=== PATIENT | female | born 1955 | race Caucasian/White ===

== ENCOUNTER 2017-05-13 17:33 | Observation (INO) | payer OTHER ==
--- NOTE | 2017-05-13 17:43 | EDPHY ---
H & P HPI/ROS: CHIEF COMPLAINT: Memory loss HISTORY OF PRESENT ILLNESS: The patient is a 61 y/o female arriving via EMS complaining of memory loss. She cannot remember what she did today, where she was this morning or what day it is today. She was last seen normal at 16:00, 2 hours ago. Her friend states she has had an upper respiratory illness all week, but the patient cannot remember this. Denies headache, fever, weakness, paresthesias or other pertinent symptoms. No recent trauma. REVIEW OF SYSTEMS: A ten point review of systems was performed and is negative with the exception of the items mentioned in the HPI. Past medical history: Diabetes insipidus Hypo change in vision, thyroidism Stage 3 Kidney disease Neuropathy Breast cancer, in remission, status post lumpectomy and chemotherapy Past surgical history: Lumpectomy Family history: Denies Social history: Friend at bedside Lives in [place] in [place] Denies marijuana use General Appearance: Alert. Vital signs reviewed. Blood Pressure: 181/96 Eyes: Pupils equal and round, no conjunctival injection, no discharge. Anicteric. ENT, Mouth: Mucous membranes are moist, no oropharyngeal erythema or edema. Neck: No lymphadenopathy, supple. Respiratory: Lungs are clear to auscultation; no wheezes, rales, or rhonchi. Cardiovascular: Regular rate and rhythm; no murmur, rub, or gallop. Gastrointestinal: Abdomen is soft and nontender, no masses or organomegaly, bowel sounds normal. Skin: Warm and dry, no rashes on exposed skin, normal color. Back: Nontender to palpation over the thoracolumbar spine. No CVAT. Extremities: No lower extremity edema, no calf tenderness or swelling. Neurological: At rest there appears to be flattening of the left nasolabial fold. Facial expressions are symmetric when following commands. Alert and oriented to person, place, year, and situation. Moving all four extremities easily and equally. Cranial nerves II through XII are examined and are intact (visual acuity not tested). Strength is 5 over 5 bilaterally with testing of all major motor groups. Sensation is intact to light touch over all 4 extremities. Deep tendon reflexes are 2+ in the biceps and knees bilaterally. Gait is normal. [id number] is performed accurately. NIHSS zero. Psychiatric: Normal affect. Constitutional: Initial Vital Signs Temperature (C) 37 C 11/18/17 18:00 Heart Rate 79 05/13/17 18:00 Respiratory Rate 16 05/13/17 18:00 Blood Pressure 176/105 H 05/13/17 18:00 O2 Sat (%) 98 05/13/17 18:00 O2 Delivery Mode Room Air Allergies/Adverse Reactions: meperidine HCl [From Demerol] Allergy (Verified 05/13/17 18:00) omeprazole [From Prilosec] Allergy (Verified 05/13/17 18:00) omeprazole magnesium [From Prilosec] Allergy (Verified 05/13/17 18:00) penicillin V potassium [From Pen-Vee K] Allergy (Verified 05/13/17 18:00) PRILO Allergy (Uncoded 05/31/13 10:42) Home Medications: Medication Instructions Recorded Docusate Sodium [Colace 100 MG (*)] 100 mg PO BID 05/13/17 Estradiol [Estrace Vaginal (*)] 42.5 gm VG MWF 05/13/17 Herbals/Supplements -Info Only 1 ea PO DAILY 05/13/17 Levothyroxine [Synthroid 75 mcg 75 mcg PO DAILY06 05/13/17 (*)] Multivitamins [Multivitamin (*)] 1 each PO DAILY 05/13/17 QUEtiapine FUMARATE [Seroquel 25 25 mg PO HS 05/13/17 mg (*)] hydrOXYzine HCL [Vistaril 25MG] 25 mg PO DAILY@17 05/13/17 lamoTRIgine [LamICTAL 100 MG (*)] 200 mg PO DAILY 05/13/17 Medical Decision Making - Diagnostics Imaging Results: Imaging Impressions Head CT 05/13/17 17:55 Impression: Minimal chronic sinus related change. Otherwise normal CT head without contrast. Results called and discussed with Dr. Rhianna Coffey at 05/13/2017 18:30. Imaging: Discussed imaging studies w/ callisthenics instructor Radiologist, I viewed and interpreted images myself ED Course/Re-evaluation: The patient is a 61 y/o female arriving via EMS complaining of memory loss. On exam there might be slight flattening of the nasolabial fold on the left, however this is difficult to determine as her facial expressions are symmetric when following commands. Labs and head CT ordered. Her stroke score is 0 and she would not qualify for tPA. 1830: Spoke with radiologist, he reports the patient has a normal head CT. I reviewed the head CT. 1830: Reassessed patient and discussed imaging results. Neurologic exam is unchanged. She continues to be unable to remember the events of the day. It is my impression that this is likely transient global amnesia. I think that stroke, hemorrhagic or ischemic, is unlikely. She has a remote history of breast cancer in malignancy is certainly a possibility--a frontal tumor could cause these symptoms. There is nothing to suggest infection. I do not suspect that she is intoxicated and she denies the use of any marijuana substances or illicit drugs. Her blood sugar is normal. 1828: The 12 lead EKG was interpreted by myself as sinus rhythm with a rate of 60. See hard copy and/or "tracemaster" electronic copy for interpretation. 1856: Consulted with Dr. Dukes, neurologist, regarding the patient's symptoms. He recommends preforming a brain MRI. Reassessed patient and discussed plan for admission; patient is comfortable with this plan. 9:00 p.m.: Awaiting MRI. Neurologic exam unchanged. Still with amnesia for the events of the day. She was hypertensive on arrival and has had an improvement in her blood pressure since then. Blood pressure was 144/86 at 7:30 PM. Differential Diagnosis: Altered mental status including but not limited to transient global amnesia, CVA , malignancy, hypoglycemia, infectious process, electrolyte abnormality, head injury and intoxicants. - Data Points Laboratory Results: Laboratory Results 05/13/17 17:45 05/13/17 17:45 05/13/17 05/13/17 05/13/17 17:45 17:45 17:45 WBC 8.07 10^3/uL 10^3/uL (3.80-9.50) RBC 4.46 10^6/uL 10^6/uL (4.18-5.33) Hgb 14.4 g/dL g/dL (12.6-16.3) POC Hgb Hct 41.1 % % (38.0-47.0) POC Hct MCV 92.2 fL fL (81.5-99.8) MCH 32.3 pg pg (27.9-34.1) MCHC 35.0 g/dL g/dL (32.4-36.7) RDW 13.4 % % (11.5-15.2) Plt Count 352 10^3/uL 10^3/uL (150-400) MPV 9.6 fL fL (8.7-11.7) Neut % (Auto) 77.6 % H % (39.3-74.2) Lymph % (Auto) 12.1 % L % (15.0-45.0) [place]ucks % (Auto) 7.4 % % (4.5-13.0) Eos % (Auto) 0.7 % % (0.6-7.6) Baso % (Auto) 1.2 % % (0.3-1.7) Nucleat RBC Rel Count 0.0 % % (0.0-0.2) Absolute Neuts (auto) 6.25 10^3/uL 10^3/uL (1.70-6.50) Absolute Lymphs (auto) 0.98 10^3/uL L 10^3/uL (1.00-3.00) Absolute Monos (auto) 0.60 10^3/uL 10^3/uL (0.30-0.80) Absolute Eos (auto) 0.06 10^3/uL 10^3/uL (0.03-0.40) Absolute Basos (auto) 0.10 10^3/uL 10^3/uL (0.02-0.10) Absolute Nucleated RBC 0.00 10^3/uL 10^3/uL (0-0.01) Immature Gran % 1.0 % % (0.0-1.1) Immature Gran # 0.08 10^3/uL 10^3/uL (0.00-0.10) PT 12.5 SEC SEC (12.0-15.0) INR 0.94 (0.83-1.16) APTT 26.7 SEC SEC (23.0-38.0) POC Sodium Sodium 135 mEq/L mEq/L (134-144) POC Potassium Potassium 4.0 mEq/L mEq/L (3.5-5.2) POC Chloride Chloride 99 mEq/L mEq/L (97-110) Carbon Dioxide 21 mEq/l L mEq/l (22-31) Anion Gap 15 mEq/L mEq/L (8-16) POC BUN BUN 21 mg/dL mg/dL (7-23) Creatinine 1.4 mg/dL H mg/dL (0.6-1.0) POC Creatinine Estimated GFR 38 Glucose 98 mg/dL mg/dL (70-100) POC Glucose Calcium 10.2 mg/dL mg/dL (8.5-10.4) Troponin I < 0.012 ng/mL ng/mL (0.000-0.034) 05/13/17 17:44 WBC RBC Hgb POC Hgb 15.6 gm/dL gm/dL (12.6-16.3) Hct POC Hct 46 % % (38-47) MCV MCH MCHC RDW Plt Count MPV Neut % (Auto) Lymph % (Auto) Bucks % (Auto) Eos % (Auto) Baso % (Auto) Nucleat RBC Rel Count Absolute Neuts (auto) Absolute Lymphs (auto) Absolute Monos (auto) Absolute Eos (auto) Absolute Basos (auto) Absolute Nucleated RBC Immature Gran % Immature Gran # PT INR APTT POC Sodium 136 mEq/L mEq/L (134-144) Sodium POC Potassium 3.5 mEq/L mEq/L (3.3-5.0) Potassium POC Chloride 101 mEq/L mEq/L (97-110) Chloride Carbon Dioxide Anion Gap POC BUN 23 mg/dL mg/dL (7-23) BUN Creatinine POC Creatinine 1.5 mg/dL H mg/dL (0.6-1.0) Estimated GFR Glucose POC Glucose 105 mg/dL H mg/dL (70-100) Calcium Troponin I Medications Given: Discontinued Medications Lorazepam (Ativan Injection) 1 mg IVP EDNOW ONE Stop: 05/13/17 19:33 Last Admin: 05/13/17 20:48 Dose: 1 mg Point of Care Test Results: 05/13/17 17:44 POC Sodium 136 POC Potassium 3.5 POC Chloride 101 POC BUN 23 POC Creatinine 1.5 H POC Glucose 105 H Departure - Departure Disposition: [facility] Inpatient Acute Clinical Impression: Transient global amnesia Condition: Fair Referrals: Patient,NotPresent [Unknown] - As per Instructions Report Scribed for: Rhianna Coffey Report Scribed by: Karly Guzman Date of Report: 05/13/17 Time of Report: 17:59 Physician Review and Approval Statement: 05/13/17 17:42 Portions of this note were transcribed by the medical office clerk. I, Dr. Rhianna Coffey, personally performed the history, physical exam, and medical decision- making; and confirmed the accuracy of the information in the transcribed note.
[2017-05-13 18:06] LABS: ABSOLUTE IMMATURE GRANULOCYTES 0.08 10^3/uL (0.00-0.10); ADD DIFF? NO; ADD MORPH? NO; ADD SCAN? NO; ATYPICAL LYMPHOCYTE FLAG 20 (0-99); FRAGMENT RBC FLAG 0 (0-99); HEMATOCRIT 41.1 % (38.0-47.0); HEMOGLOBIN 14.4 g/dL (12.6-16.3); LEFT SHIFT FLG 0 (0-99); LIPEMIA HEMOLYSIS FLAG 90 (0-99); MEAN CELL HEMOGLOBIN 32.3 pg (27.9-34.1); MEAN CELL VOLUME 92.2 fL (81.5-99.8); MEAN PLATELET VOLUME 9.6 fL (8.7-11.7); PLATELET CLUMPS FLAG 0 (0-99); PLATELET COUNT 352 10^3/uL (150-400); RED BLOOD CELL COUNT 4.46 10^6/uL (4.18-5.33); RED CELL DISTRIBUTION WIDTH 13.4 % (11.5-15.2)
[2017-05-13 18:15] LABS: APTT 26.7 SEC (23.0-38.0); INR 0.94 (0.83-1.16); PROTIME(PATIENT) 12.5 SEC (12.0-15.0)
[2017-05-13 18:17] LABS: ANION GAP 15 mEq/L (8-16); CALCIUM 10.2 mg/dL (8.5-10.4); CARBON DIOXIDE 21 mEq/l (22-31); CHLORIDE 99 mEq/L (97-110); CREATININE 1.4 mg/dL (0.6-1.0); GLOMERULAR FILTRATION RATE 38; GLUCOSE 98 mg/dL (70-100); SODIUM 135 mEq/L (134-144)
[2017-05-13 18:28] LABS: TROPONIN I < 0.012 ng/mL (0.000-0.034)
--- NOTE | 2017-05-13 18:31 | CPEKG ---
Heart Rate: 60 RR Interval: 1000 P-R Interval: 168 QRSD Interval: 88 QT Interval: 428 QTC Interval: 428 P Silver Star: 46 QRS Silver Star: 27 T Wave Silver Star: 43 EKG Severity - NORMAL ECG - EKG Impression: SINUS RHYTHM Electronically Signed By: Rhianna Coffey 13-May-2017 20:52:49
[2017-05-13] MEDS ORDERED: LORazepam 2 MG/ML INJ IVP ONE (19:32)
[2017-05-13] MEDS ORDERED: GADOBUTROL 10 ML VIAL IVP ONE (21:14)
[2017-05-13] MEDS ORDERED: ONDANSETRON 4 MG/2 ML VIAL IVP PRN (22:12)
[2017-05-13] MEDS ORDERED: ACETAMINOPHEN 325 MG TAB PO PRN (22:12)
[2017-05-13] MEDS ORDERED: NS 1,000 ML IV SCH (22:30)
[2017-05-13 22:41] LABS: ALBUMIN 4.6 g/dL (3.5-5.0); BILIRUBIN,TOTAL 0.3 mg/dL (0.1-1.4); BILIRUBIN-CONJUGATED 0.1 mg/dL (0.0-0.5); BILIRUBIN-UNCONJUGATED 0.2 mg/dL (0.0-1.1); TOTAL PROTEIN 7.2 g/dL (6.3-8.2)
[2017-05-13 23:37] LABS: COLOR PALE YELLOW; LEUKOCYTE ESTERASE,URINE NEGATIVE (NEGATIVE); NITRITE,URINE NEGATIVE (NEGATIVE)
--- NOTE | 2017-05-13 23:55 | PDGENHP ---
History and Physical - Chief Complaint memory loss - History of Present Illness Source - patient able to provide majority of the pmhx. she is limited on ROS and HPI 2/2 memory loss. Patient goes by the name "Bandar" HPI - Pleasant 61 yo F with pmhx significant for Diabetes insipidus related to prev hx lithium use, bipolar disorder, CKD3, neuropathy, remote hx of Breast ca in remission s/p lumpectomy and chemo who presents to ED today with complaints of memory loss for the last 24 hours. Patient can recall bits and pieces of events but not specific details. She can recall being on a date yesterday and name of her date but not what he looked like. She recalls watering down her drink and having some wine. She went to sleep and has recently restarted taking 25mg seroquel at HS to help with her sleep. Patient reports compliance with her Lamictal taken daily. Patient also notes she has been taking OTC cough medications for recent viral URI but cannot recall what. She denies any symptoms of grandiosity, decreased need for sleep or hailey. Patient states she is always eating and drinking. She also has an alcoholic beverage nearly daily basis either shot of liquor at HS and more so on the weekends. She feels as though things "don't feel real." some lightheadedness with ambulation since arrival to the floor but patient received 1mg ativan for her MRI. History Information - Allergies/Home Medication List Allergies/Adverse Reactions: meperidine HCl [From Demerol] Allergy (Verified 05/13/17 18:00) omeprazole [From Prilosec] Allergy (Verified 05/13/17 18:00) omeprazole magnesium [From Prilosec] Allergy (Verified 05/13/17 18:00) penicillin V potassium [From Pen-Vee K] Allergy (Verified 05/13/17 18:00) PRILO Allergy (Uncoded 05/31/13 10:42) Home Medications: Docusate Sodium [Colace 100 MG (*)] 100 mg PO BID 05/13/17 [Last Taken Unknown] Estradiol [Estrace Vaginal (*)] 42.5 gm VG MWF 05/13/17 [Last Taken Unknown] Herbals/Supplements -Info Only 1 ea PO DAILY 05/13/17 [Last Taken Unknown] Levothyroxine [Synthroid 75 mcg (*)] 75 mcg PO DAILY06 05/13/17 [Last Taken Unknown] Multivitamins [Multivitamin (*)] 1 each PO DAILY 05/13/17 [Last Taken Unknown] QUEtiapine FUMARATE [Seroquel 25 mg (*)] 25 mg PO HS 05/13/17 [Last Taken Unknown] hydrOXYzine HCL [Vistaril 25MG] 25 mg PO DAILY@17 05/13/17 [Last Taken Unknown] lamoTRIgine [LamICTAL 100 MG (*)] 200 mg PO DAILY 05/13/17 [Last Taken Unknown] I have personally reviewed and updated: family history, medical history, social history, surgical history - Past Medical History Additional medical history: bipolar disorder. DI 2/2 prev hx lithium use. hypothyroidism. CKD 3 baseline cr 1.2 per pt. OA right knee/shoulder. Breast ca (lumpectomy/chemo). neuropathy bilateral feet 2/2 chemo - Surgical History Additional surgical history: C/S x 2. breast lumpectomy - Family History Additional family history: dementia. maternal aunt with CVA. niece with tubular sclerosis - Social History Smoking Status: Former smoker Alcohol Use: Other (almost daily with 1 shot in the evenings and additional drinks on the weekend or socially.) Drug Use: None (pt denies any use. remote history in her 20s to experiment.) Additional social history: Patient lives alone. has 2 adult children living out of state. 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 COR FULL. patient desires her son Remi Valle to act as proxy if needed. Review of Systems Review of Systems: ROS: 10pt was reviewed & negative except for what was stated in HPI & below Constitutional: Reports: malaise. Denies: chills, fever, weakness EENMT: Reports: nose congestion. Denies: blurred vision, mouth pain, sore throat Cardiac: Reports: no symptoms, lightheadedness. Denies: chest pain, edema, palpitations, syncope Respiratory: Reports: cough. Denies: shortness of breath, wheezing Gastrointestinal: Reports: no symptoms. Denies: vomitting, diarrhea, nausea Genitourinary: Denies: dysuria, hematuria Muscolosketal: Reports: joint pain (chronic knee/shoulder). Denies: muscle pain Skin: Reports: no symptoms. Denies: rash Neurological: Reports: anxiety, headache, numbness (bilateral feet/hx neuropathy ), other (denies seizure activity). Denies: depressed, weakness Hematologic/Lymphatic: Denies: easy bleeding, easy bruising Physical Exam Physical Exam: Temp Pulse Resp BP Pulse Ox 36.6 C 50 L 14 134/77 H 99 05/13/17 23:17 05/13/17 23:17 05/13/17 23:17 05/13/17 23:17 05/13/17 23:17 Constitutional: no apparent distress, appears nourished, not in pain Eyes: PERRL, anicteric sclera, EOMI, No pale conjunctiva, No scleral injection Ears, Nose, Mouth, Throat: dry mucous membranes, No no oral mucosal ulcers, No poor dentition Cardiovascular: regular rate and rhythym, no murmur, rub, or gallop, pulses symmetric bilaterally, No systolic murmur, No edema Peripheral Pulses: 2+: dorsalis-pedis (R), dorsalis-pedis (L) Respiratory: no respiratory distress, no rales or rhonchi, clear to auscultation , other (recurrent dry cough) Gastrointestinal: normoactive bowel sounds, soft, non-tender abdomen, no palpable masses, No tenderness, No distension Genitourinary: no bladder tenderness, No murillo in urethra Skin: warm, normal color, no rashes or abrasions Musculoskeletal: full muscle strength, no muscle tenderness, No generalized weakness Neurologic: AAOx3, numbness (feet), CN II-XII Intact, No weakness Psychiatric: anxious, poor memory, other (patient slightly restless. ), No thought process linear, No depressed, No suicidal ideation, No poor insight, No poor judgement Lab Data & Imaging Review 05/14/17 04:34 05/14/17 04:34 WBC 8.07 10^3/uL (3.80-9.50) 05/13/17 17:45 RBC 4.46 10^6/uL (4.18-5.33) 05/13/17 17:45 Hgb 14.4 g/dL (12.6-16.3) 05/13/17 17:45 POC Hgb 15.6 gm/dL (12.6-16.3) 05/13/17 17:44 Hct 41.1 % (38.0-47.0) 05/13/17 17:45 POC Hct 46 % (38-47) 05/13/17 17:44 MCV 92.2 fL (81.5-99.8) 05/13/17 17:45 MCH 32.3 pg (27.9-34.1) 05/13/17 17:45 MCHC 35.0 g/dL (32.4-36.7) 05/13/17 17:45 RDW 13.4 % (11.5-15.2) 05/13/17 17:45 Plt Count 352 10^3/uL (150-400) 05/13/17 17:45 MPV 9.6 fL (8.7-11.7) 05/13/17 17:45 Neut % (Auto) 77.6 % (39.3-74.2) H 05/13/17 17:45 Lymph % (Auto) 12.1 % (15.0-45.0) L 05/13/17 17:45 [place] % (Auto) 7.4 % (4.5-13.0) 05/13/17 17:45 Eos % (Auto) 0.7 % (0.6-7.6) 05/13/17 17:45 Baso % (Auto) 1.2 % (0.3-1.7) 05/13/17 17:45 Nucleat RBC Rel Count 0.0 % (0.0-0.2) 05/13/17 17:45 Absolute Neuts (auto) 6.25 10^3/uL (1.70-6.50) 05/13/17 17:45 Absolute Lymphs (auto) 0.98 10^3/uL (1.00-3.00) L 05/13/17 17:45 Absolute Monos (auto) 0.60 10^3/uL (0.30-0.80) 05/13/17 17:45 Absolute Eos (auto) 0.06 10^3/uL (0.03-0.40) 05/13/17 17:45 Absolute Basos (auto) 0.10 10^3/uL (0.02-0.10) 05/13/17 17:45 Absolute Nucleated RBC 0.00 10^3/uL (0-0.01) 05/13/17 17:45 Immature Gran % 1.0 % (0.0-1.1) 05/13/17 17:45 Immature Gran # 0.08 10^3/uL (0.00-0.10) 05/13/17 17:45 PT 12.5 SEC (12.0-15.0) 05/13/17 17:45 INR 0.94 (0.83-1.16) 05/13/17 17:45 APTT 26.7 SEC (23.0-38.0) 05/13/17 17:45 POC Sodium 136 mEq/L (134-144) 05/13/17 17:44 Sodium 135 mEq/L (134-144) 05/13/17 17:45 POC Potassium 3.5 mEq/L (3.3-5.0) 05/13/17 17:44 Potassium 4.0 mEq/L (3.5-5.2) 05/13/17 17:45 POC Chloride 101 mEq/L (97-110) 05/13/17 17:44 Chloride 99 mEq/L (97-110) 05/13/17 17:45 Carbon Dioxide 21 mEq/l (22-31) L 05/13/17 17:45 Anion Gap 15 mEq/L (8-16) 05/13/17 17:45 POC BUN 23 mg/dL (7-23) 05/13/17 17:44 BUN 21 mg/dL (7-23) 05/13/17 17:45 Creatinine 1.4 mg/dL (0.6-1.0) H 05/13/17 17:45 POC Creatinine 1.5 mg/dL (0.6-1.0) H 05/13/17 17:44 Estimated GFR 38 05/13/17 17:45 Glucose 98 mg/dL (70-100) 05/13/17 17:45 POC Glucose 105 mg/dL (70-100) H 05/13/17 17:44 Calcium 10.2 mg/dL (8.5-10.4) 05/13/17 17:45 Total Bilirubin 0.3 mg/dL (0.1-1.4) 05/13/17 17:45 Conjugated Bilirubin 0.1 mg/dL (0.0-0.5) 05/13/17 17:45 Unconjugated Bilirubin 0.2 mg/dL (0.0-1.1) 05/13/17 17:45 AST 29 IU/L (14-46) 05/13/17 17:45 ALT 33 IU/L (9-52) 05/13/17 17:45 Alkaline Phosphatase 144 IU/L (38-126) H 05/13/17 17:45 Troponin I < 0.012 ng/mL (0.000-0.034) 05/13/17 17:45 Total Protein 7.2 g/dL (6.3-8.2) 05/13/17 17:45 Albumin 4.6 g/dL (3.5-5.0) 05/13/17 17:45 Urine Color PALE YELLOW 05/13/17 23:25 Urine Appearance CLEAR 05/13/17 23:25 Urine pH 7.0 (5.0-7.5) 05/13/17 23:25 Ur Specific [place] 1.004 (1.002-1.030) 05/13/17 23:25 Urine Protein NEGATIVE (NEGATIVE) 05/13/17 23:25 Urine Ketones NEGATIVE (NEGATIVE) 05/13/17 23:25 Urine Blood NEGATIVE (NEGATIVE) 05/13/17 23:25 Urine Nitrate NEGATIVE (NEGATIVE) 05/13/17 23:25 Urine Bilirubin NEGATIVE (NEGATIVE) 05/13/17 23:25 Urine Urobilinogen NEGATIVE EU (0.2-1.0) 05/13/17 23:25 Ur Leukocyte Esterase NEGATIVE (NEGATIVE) 05/13/17 23:25 Urine Glucose NEGATIVE (NEGATIVE) 05/13/17 23:25 Imaging Review: CT Head (Without Contrast) Indication: Memory loss. Cognitive impairment.. Technique: 5 mm images were obtained of the head without contrast. Multiplanar reformation was performed. Dose reduction techniques were utilized. Findings: No evidence for intracranial mass, hemorrhage, or infarct. The ventricles, sulci, and cisterns are within normal limits for the patient's age. No evidence for an extra-axial fluid collection. No evidence for skull fracture. Minimal mucous membrane thickening is present maxillary sinuses bilateral. Impression: Minimal chronic sinus related change. Otherwise normal CT head without contrast. Results called and discussed with Dr. Rhianna Coffey at 05/13/2017 18:30. MRI of the Brain (Without and With Contrast) Clinical Indication: memory loss (today's events). Remote history breast CA.. Technique: MRI was performed of the brain using a 1.5 Uzma MRI system. Sagittal, axial, and coronal images were performed using standard imaging sequences. Images were obtained pre and post intravenous contrast, 5 mL of Gadavist. Findings: The ventricles, cisterns, and sulci are normal for the patient's age. No evidence for an extra-axial fluid collection. No evidence for mass effect or midline shift. No significant white matter lesion is identified. No evidence for intracranial mass, hemorrhage, or infarct. Diffusion-weighted images are normal. Posterior fossa appears normal with a normal appearance to the craniocervical junction. Pituitary gland is normal in size. The major caliber vessels visualized are normal in appearance. Mild mucous membrane thickening in the maxillary sinuses and sphenoid sinuses. Impression: Mild chronic sinus related change. Otherwise, normal MRI of the brain without and with contrast. No evidence for infarct or metastatic disease. Visualized and Interpreted imaging results: Yes Visualized and Interpreted EKG results: Yes Assessment & Plan Assessment: 61 yo F with pmhx significant for bipolar d/o, ckd 3, hypothyroidism, DI who presents with nearly 24 hours of memory loss/amnesia. amnesia/memory loss - patient without any focal deficits. initial CT head was negative and neurology recommended MRI be obtained which was also negative. so no acute CVA. ddx including polypharmacy in setting of yazmin and decreased clearance vs. encephalopathy in setting of recent viral illness vs. psychiatric vs less likely seizure/migraine. Patient denies any symptoms of hailey and reports compliance of her antipsychotics. Will hold off on sedating medications at this time. patient received ativan for MRI and is quite sleepy requesting to sleep but still cooperative. IVF hydration for YAZMIN and repeat bmp in AM. check tsh. viral uri - respiratory pcr ordered. lungs clear at this time but patient with persistent cough. cxr in AM as patient c/o significant need to sleep. no antibiotics at this time. Patient reports she received her flu vaccination 3 weeks ago. yazmin on ckd 3 - patient reports baseline creatinine is 1.2 and today slightly increased. hx of DI, no longer on lithium. will give some gentle hydration overnight and repeat bmp in AM. bipolar disorder - patient reports her symptoms have been controlled with lamictal. no manic/hypomanic symptoms reported. she recently also added seroquel in the last week at hs for sleep. elevated BP without history of HTN - patient appears slightly anxious. will monitor BPs which have decreased to near normal values. hydralazine prn. hypothyroidism - check tsh. continue l-thyroxine. hx diabetes insipidus - has been off lithium for some time. IVF for yazmin. electrolytes acceptable. FEN - IVF NS 75. electrolyte replacement prn. diet as tolerated. PPX - SCDs. lovenox. COR - FULL. patient desires her sister or her children to act as proxy if needed. Dispo - Admit to observation on neuro floor.
[2017-05-14 00:18] LABS: PHENCYCLIDINE URINE BCH < 6 ng/ml (NEGATIVE); PHENCYCLIDINE URINE BCH NEGATIVE (NEGATIVE); TETRAHYDROCANNABINOL URINE < 5 ng/mL (NEGATIVE); TETRAHYDROCANNABINOL URINE NEGATIVE (NEGATIVE)
[2017-05-14 04:42] VITALS: O2SAT 98
[2017-05-14 04:51] LABS: % IMMATURE GRANULYOCYTES 0.3 % (0.0-1.1); ABSOLUTE IMMATURE GRANULOCYTES 0.02 10^3/uL (0.00-0.10); ADD DIFF? NO; ADD MORPH? NO; ADD SCAN? NO; ATYPICAL LYMPHOCYTE FLAG 20 (0-99); FRAGMENT RBC FLAG 0 (0-99); HEMATOCRIT 36.4 % (38.0-47.0); HEMOGLOBIN 12.6 g/dL (12.6-16.3); LEFT SHIFT FLG 0 (0-99); LIPEMIA HEMOLYSIS FLAG 90 (0-99); MEAN CELL HEMOGLOBIN CONCENTR. 34.6 g/dL (32.4-36.7); MEAN CELL VOLUME 92.4 fL (81.5-99.8); PLATELET CLUMPS FLAG 0 (0-99); PLATELET COUNT 283 10^3/uL (150-400); RED BLOOD CELL COUNT 3.94 10^6/uL (4.18-5.33); RED CELL DISTRIBUTION WIDTH 13.4 % (11.5-15.2)
[2017-05-14 05:05] LABS: ALANINE AMINOTRANSFERASE 29 IU/L (9-52); ALBUMIN 3.3 g/dL (3.5-5.0); ALKALINE PHOSPHATASE 92 IU/L (38-126); ANION GAP 10 mEq/L (8-16); ASPARTATE AMINOTRANSFERASE 22 IU/L (14-46); BILIRUBIN,TOTAL 0.3 mg/dL (0.1-1.4); CALCIUM 9.4 mg/dL (8.5-10.4); CARBON DIOXIDE 25 mEq/l (22-31); CHLORIDE 111 mEq/L (97-110); CREATININE 1.3 mg/dL (0.6-1.0); GLOMERULAR FILTRATION RATE 41; GLUCOSE 83 mg/dL (70-100); MAGNESIUM 2.2 mg/dL (1.6-2.3); POTASSIUM 4.1 mEq/L (3.5-5.2); SODIUM 146 mEq/L (134-144); TOTAL PROTEIN 5.6 g/dL (6.3-8.2)
[2017-05-14] MEDS ORDERED: ENOXAPARIN 40 MG/0.4 ML SYR SC SCH (09:00)
--- NOTE | 2017-05-14 09:54 | HOSPPROG ---
Hospitalist Progress Note Assessment/Plan: 61 yo F with pmhx significant for bipolar d/o, ckd 3, hypothyroidism, DI who presents with nearly 24 hours of memory loss/amnesia. *amnesia/memory loss -CT scan with nothing acute -MRI shows no type of ischemia -may be due to polypharmacy/she is taking Lamictal regularly, and takes Seroquel for sleep. In addition she tried a little Vistaril to help her relax -TSH is stable *viral uri +enterovirus and human rhinovirus -will add guaifenesin *hypernatremia -suspect she was dehydrated *luz on ckd 3 -creat is 1.3/ slightly above her baseline *bipolar disorder -uses Lamictal with good results -uses Seroquel prn for sleep *elevated BP without history of HTN -resolved *hypothyroidism - -TSH is 1.6 *hx diabetes insipidus - has been off lithium for some time. IVF for luz. electrolytes acceptable. * remote history of breast cancer * plan. Neurology to see today. I suspect her amnesia is related to increased stress, and use of medications, and upper respiratory infection Subjective: [place] has no c/o pain but is worried she can't remember any events from yesterday. Objective: Vital Signs Temp Pulse Resp BP Pulse Ox 36.6 C 72 21 H 130/70 H 98 05/14/17 08:00 05/14/17 08:00 05/14/17 08:00 05/14/17 08:00 05/14/17 08:00 Microbiology 05/14/17 00:15 Respiratory Panel (PCR) - Final Nasal, Sinus - Swab Human Rhinovirus/Enterovirus Laboratory Results 05/14/17 04:34 05/14/17 04:34 05/13/17 05/14/17 05/15/17 05:59 05:59 05:59 Intake Total 1200 Output Total 1100 Balance 100 PT 12.5 SEC (12.0-15.0) 05/13/17 17:45 INR 0.94 (0.83-1.16) 05/13/17 17:45 - Physical Exam Constitutional: no apparent distress, appears nourished, not in pain Eyes: PERRL Ears, Nose, Mouth, Throat: hearing normal Cardiovascular: regular rate and rhythym Respiratory: no respiratory distress Skin: warm, normal color Musculoskeletal: full muscle strength Neurologic: AAOx3 Psychiatric: interacting appropriately ICD10 Worksheet Patient Problems: Problems Problem Status Onset Transient global amnesia Acute
[2017-05-14] MEDS ORDERED: lamoTRIgine 100 MG TAB PO SCH ×2 (10:45→21:00)
[2017-05-14] MEDS ORDERED: LEVOTHYROXINE 50 MCG TAB PO SCH (10:45)
[2017-05-14] MEDS ORDERED: guaiFENesin 600 MG TAB.ER PO SCH (10:45)
[2017-05-14 11:59] VITALS: BP 156/88; PULSE 58; RESP 12; TEMP 97.5
--- NOTE | 2017-05-14 12:15 | NEUROPROG ---
Assessment: HOSPITAL NEUROLOGY CONSULT REQUESTING: Sukhwinder Devine MD REASON: amnesia, encephalopathy HPI: 61 year old woman admitted yesterday with concerns of altered mental status and amnesia. 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 Patient notes the past week she's been dealing with a cough/URI. She went out on a date on Monday, 05/12 (1 days [employer]). She had a nice evening and everything was seemingly normal. The next day, 05/13 (day of admission), she continued with her URI symptoms. She got back from running errands and took some Robitussin for her cough. Shortly thereafter, she started to feel abruptly out of body and odd. She could not remember most of the details of her date the night prior. This was of concern so she was transported to our ED via EMS. An MRI brain wo was done out of concern for transient global amnesia and stroke. This study was normal. She was admitted for observation. Patient notes she takes quetiapine for sleep at night. She has also been taking hydroxyzine. She take lamotrigine for her bipolar with good result. Today she notes she is able to recall most details from her date on Monday, and has no other cognitive changes. She feels back to herself. The only hospital intervention has been rehydration with IVF for some mild dehydration with evidence of hemoconcentration on labs. Patient experienced no weakness, sensory changes (aside from chronic sensory loss in her feet from prior chemo), speech changes, language changes, visual disturbance, gait change, HE, dizziness, fevers, chills, neck stiffness. No prior history of stroke/TIA. She has no known conventional vascular risk factors. She had no impaired awareness or LOC. ROS: As per the HPI, otherwise a complete 12 point ROS was performed and is negative ALLERGIES AND MEDS: As recorded in the EMR - reviewed and reconciled PFSH: As per the intake H&P by Dr. Paez from yesterday EXAM: VS reviewed in EMR GEN: WDWN laying in NAD HEENT: NCAT, sclera anicteric, conjunctiva not injected, MMM, oropharynx clear, no scalp tenderness NECK: supple, nontender, no meningismus CV: RRR s1 s2 wo m/r/c/g. Carotid pulses 2+ wo bruit NEURO: MS: awake, alert, oriented to all spheres. Speech nondysarthric. No language disturbance. Follows commands. Attends to both sides. Recent/remote memory grossly intact. Mood euthymic. Good fund of knowledge. CN: pupils 4mm round and reactive. Fundi with sharp discs. VFF. Primary gaze centered. Full ocular motility. Facial sensation preserved. Face symmetric. Hearing grossly intact to finger rub. Palatoglossal movements intact. Shoulder shrug and head turn strong. MOTOR: normal bulk/tone. No adventitial movements. Full power throughout. SENSORY: symmetric LT/PP throughout. No extinction. COORD: no ataxia FN/HS. Clare preserved. REFLEX: plantars down. No clonus. Absent ankle jerks, DTRS 2/4. GAIT: deferred to PT safety eval DATA REVIEW: Labs reviewed in EMR PERSONALLY INTERPRETED RESULTS AND DATA: MRI brain wo - normal study, incidental note of some sinus disease IMPRESSION AND RECOMMENDATIONS: // SUSPECT TOXIC ENCEPHALOPATHY - RESOLVED Patient with out of body feeling and amnesia that has resolved. Seemingly coincidental with ingestion of Robitussin, which contains DXM, a known dissociative/deliriant. This may have been compounded by advancing age, ingestion of antihistamine (hydroxyzine), underlying bipolar (which predisposes to thought processing deficits in multiple domains, including memory), and dehydration. Dissociative sensation would argue against something like transient global amnesia, as would the some preservation in her memory of the events while symptomatic, the retrograde only amnesia, and recovery of memory. For now, I advised she avoid DXM containing compounds. She is otherwise doing well with her medication regimen. Her MRI shows no evidence of underlying cerebrovascular disease, and semiology of her events is not consistent with seizure or other sinister primary neurologic process. OK to discharge from neuro perspective. She can followup with her PCP and mental health providers. Objective: Vital Signs Temp Pulse Resp BP Pulse Ox 36.4 C 58 L 12 156/88 H 98 05/14/17 11:59 05/14/17 11:59 05/14/17 11:59 05/14/17 11:59 05/14/17 11:59 Microbiology 05/14/17 00:15 Respiratory Panel (PCR) - Final Nasal, Sinus - Swab Human Rhinovirus/Enterovirus Laboratory Results 05/14/17 04:34 05/14/17 04:34 05/13/17 05/14/17 05/15/17 05:59 05:59 05:59 Intake Total 1200 Output Total 1100 Balance 100 PT 12.5 SEC (12.0-15.0) 05/13/17 17:45 INR 0.94 (0.83-1.16) 05/13/17 17:45 Allergies/Adverse Reactions: meperidine HCl [From Demerol] Allergy (Verified 05/13/17 18:00) omeprazole [From Prilosec] Allergy (Verified 05/13/17 18:00) omeprazole magnesium [From Prilosec] Allergy (Verified 05/13/17 18:00) penicillin V potassium [From Pen-Vee K] Allergy (Verified 05/13/17 18:00) PRILO Allergy (Uncoded 05/31/13 10:42)
--- NOTE | 2017-05-14 14:17 | GDS ---
[f rep st] DISCHARGE SUMMARY DISCHARGE DIAGNOSES: 1. Amnesia with associated memory loss. 2. Viral upper respiratory infection. 3. Hyponatremia. 4. Acute kidney injury on chronic kidney disease. 5. Bipolar disorder. 6. Hypertension on admission. 7. Hypothyroidism. 8. History of diabetes insipidus. 9. Remote history of breast cancer. CONSULTATION: Naveen Dukes DO. HISTORY OF PRESENT ILLNESS: Briefly, the patient is a 61-year-old female who was admitted with altered mental status and amnesia. 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 She had no recollection of her day yesterday. She had an MRI of the brain. This was a normal study. She has some sinus disease. CT scan showed nothing acute. It is likely that she had ingestion of Robitussin, which contains DXM. This can cause a dissociative deliriant. She also took some hydroxyzine and also has underlying bipolar disorder. She was hydrated. She is feeling markedly better, except for a cough from her upper respiratory infection. She will be discharged home and further followup with her primary care provider. HOSPITAL COURSE PER PROBLEM: 1. Acute encephalopathy with associated amnesia and memory loss. Likely due to polypharmacy. She uses Lamictal daily and Seroquel p.r.n. for sleep. She also took some Vistaril to help her relax, and she was also taking Robitussin with DM. Recommended that she stop the Robitussin completely. 2. Viral upper respiratory infection. She had a PCR done which was positive for enterovirus and human rhinovirus, recommending supportive care. 3. Hyponatremia. I suspect she was very dehydrated on admission. 4. Acute kidney injury on chronic kidney disease. Her creatinine is 1.3. She said her baseline is about 1.2-1.3. 5. Bipolar disorder. She uses Lamictal with good results. 6. Elevated blood pressure on admission, resolved. 7. Hypothyroidism. TSH is 1.6. 8. History of diabetes insipidus. This was secondary to lithium use. 9. Remote history of breast cancer. Further followup with Oncology. DISCHARGE CONDITION: Stable. Blood pressure is 130/70, heart rate is 72, respiratory rate is 20, O2 sats on room air 98%, temperature is 36.6 Celsius. MEDICATIONS AT DISCHARGE: Please see the EMR. DISCHARGE INSTRUCTIONS: 1. To avoid Robitussin DM. Also, recommend someone stay with her. 2. I explained to her that estrogen with Seroquel can increase her risk of seizures. 3. Follow up with her primary care physician if she is still feeling poorly from her cough. /[id number]/MODL MTDD
--- NOTE | 2017-05-14 14:53 | ASDISCHSUM ---
Discharge Information Plan Status:Home with No Needs Medically Cleared to Leave: Discharge Date:05/14/2017 01:42 PM CM D/C Disposition:Home, Routine, Self-Care ADT D/C Disposition:Home, Routine, Self-Care Projected Discharge Date:05/14/2017 01:42 PM Transportation at D/C:Self Discharge Delay Reason: Follow-Up Date:05/14/2017 01:42 PM Discharge Slot: Final Diagnosis: Placement Information Patient Contact Information Contact Name:ALISON Relationship:Other Address: Work Phone: City: [facility] Phone: State/Zip Code: Email: Financial Information Financial Class:HMO and PPO Plans Primary Plan Desc:[facility] [employer] Primary Plan Number:[id number] Secondary Plan Desc: Secondary Plan Number: Assessment Information Intervention Information
[2017-05-14] MEDS ORDERED: cycloSPORINE 0.05% 30 DROPERETTE/BOX EACHEYE SCH (21:00)
[2017-05-14] MEDS ORDERED: DOCUSATE SODIUM 100 MG CAP PO SCH (21:00)
[2017-05-15] MEDS ORDERED: Herbals/Supplements -Info Only PO SCH (09:00)
[2017-05-15] MEDS ORDERED: MULTIVITAMINS 1 EACH TAB PO SCH (09:00)
== END 2017-05-14 13:42 | disposition home or self-care (01) ==
LOC: EDUNIT# → EDBD → F3N 22:45
PROVIDERS: ADMIT Internal Medicine; ATTEND Internal Medicine
DX: R41.3 Other amnesia (principal); J06.9 Acute upper respiratory infection, unspecified; E87.1 Hypo-osmolality and hyponatremia; N17.9 Acute kidney failure, unspecified; N18.9 Chronic kidney disease, unspecified; I12.9 Hypertensive chronic kidney disease with stage 1 through stage 4 chronic kidney disease, or unspecified chronic kidney disease; F31.9 Bipolar disorder, unspecified; E03.9 Hypothyroidism, unspecified; Z85.3 Personal history of malignant neoplasm of breast
CPT/HCPCS: 70450; 70553; 93005; G0378; 80307; 82947-QW; 96374; A9585; G0480; J1650; J2060